=== PATIENT | female | born 1990 | race Caucasian/White ===

== ENCOUNTER 2017-09-11 03:19 | Emergency (ER) | payer OTHER ==
[~2017-09-11] VITALS: Ht 179.1 cm; Wt 66.0 kg
[2017-09-11 03:23] VITALS: TEMP 36.4; Ht 179.1 cm; Wt 66.0 kg
[2017-09-11] MEDS ORDERED: SODIUM CHLORIDE 0.9% 1000ML 1,000 ML IV STA ×2 (03:44→04:18)
[2017-09-11] MEDS ORDERED: ONDANSETRON INJ 2 MG/ML 2 ML VIAL IV STA (03:44)
--- NOTE | 2017-09-11 03:49 | EMERGENCY ROOM VISIT NOTE ---
History Report prepared by Luisa: Andrew Mcwilliams Under the Supervision of: Dr. Shameka Frias D.O. First contact with patient: 03:28 Chief Complaint: VOMITING Stated Complaint: VOMITING SINCE 1030AM, UNABLE TO KEEP FLUIDS DOWN, History of Present Illness The patient is a 27 year old female who presents to the Emergency Room with complaints of persistent vomiting and diarrhea that began yesterday morning at 1030 am, 17 hours prior to arrival. The patient states that there was a span of 3 hours where she held down some fluids, before vomiting persistently again. Yesterday evening at 1800 the patient also started to experience a headache. This headache is present and "severe" now. The patient is also complaining of "cramping" and "sharp" pains in her abdomen. There has not been any blood in the vomit or stool. She believes that her symptoms are the result of food poisoning as she may have eaten a bad steak. She denies any recent travels or sick contacts. 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 A total of 10 systems reviewed and were otherwise negative. Past Medical & Surgical Medical Problems: (1) Anxiety (2) Depression Anxiety Depression Family History Diabetes mellitus FHx: cancer Hypertension Social History Smoking Status: Never Smoker Marital Status: in relationship Housing Status: lives with significant other Occupation Status: unemployed Current/Historical Medications Scheduled Citalopram (Citalopram Hydrobromide), 40 MG PO DAILY Ferrous Sulfate (Iron), 325 MG PO BID Scheduled PRN Loratadine (Claritin), 10 MG PO DAILY PRN for Allergic Reaction Allergies Coded Allergies: No Known Allergies (Unverified , 09/11/17) Physical Exam Vital Signs Date Time Temp Pulse Resp B/P (MAP) Pulse Ox O2 Delivery O2 Flow Rate FiO2 09/11/17 05:54 73 20 112/63 100 09/11/17 05:11 63 20 109/70 100 Room Air 09/11/17 03:23 36.4 86 18 114/79 97 Room Air Physical Exam GENERAL: alert, well appearing, well nourished, no distress, non-toxic EYE EXAM: normal conjunctiva, PERRL and EOM's grossly intact OROPHARYNX: no exudate, no erythema, lips, buccal mucosa, and tongue normal and mucous membranes are moist NECK: supple, no nuchal rigidity, no adenopathy, non-tender LUNGS: Clear to auscultation. Normal chest wall mechanics HEART: no murmurs, S1 normal and S2 normal ABDOMEN: abdomen soft, non-tender, normo-active bowel sounds, no masses, no rebound or guarding. BACK: Back is symmetrical on inspection and there is no deformity, no midline tenderness, no CVA tenderness. SKIN: no rashes and no bruising UPPER EXTREMITIES: upper extremities are grossly normal. LOWER EXTREMITIES: No pitting edema. NEURO EXAM: Normal sensorium. Medical Decision & Procedures ER Provider Diagnostic Interpretation: Radiology results have been interpreted by the radiologist and reviewed by me. KUB: Abdominal series is negative for SBO. Scattered air present. Laboratory Results 09/11/17 04:00 Red Blood Count 4.08, Mean Corpuscular Volume 90.4, Mean Corpuscular Hemoglobin 32.4, Mean Corpuscular Hemoglobin Concent 35.8, Mean Platelet Volume 8.7, Neutrophils (%) (Auto) 90.5, Lymphocytes (%) (Auto) 3.9, Monocytes (%) (Auto) 5.4, Eosinophils (%) (Auto) 0.0, Basophils (%) (Auto) 0.0, Neutrophils # (Auto) 8.07, Lymphocytes # (Auto) 0.35, Monocytes # (Auto) 0.48, Eosinophils # (Auto) 0.00, Basophils # (Auto) 0.00 09/11/17 04:00 Test 09/11/17 04:00 White Blood Count 8.92 K/uL (4.8-10.8) Red Blood Count 4.08 M/uL (4.2-5.4) Hemoglobin 13.2 g/dL (12.0-16.0) Hematocrit 36.9 % (37-47) Mean Corpuscular Volume 90.4 fL (80-100) Mean Corpuscular Hemoglobin 32.4 pg (25-34) Mean Corpuscular Hemoglobin Concent 35.8 g/dl (32-36) Platelet Count 233 K/uL (130-400) Mean Platelet Volume 8.7 fL (7.4-10.4) Neutrophils (%) (Auto) 90.5 % Lymphocytes (%) (Auto) 3.9 % Monocytes (%) (Auto) 5.4 % Eosinophils (%) (Auto) 0.0 % Basophils (%) (Auto) 0.0 % Neutrophils # (Auto) 8.07 K/uL (1.4-6.5) Lymphocytes # (Auto) 0.35 K/uL (1.2-3.4) Monocytes # (Auto) 0.48 K/uL (0.11-0.59) Eosinophils # (Auto) 0.00 K/uL (0-0.5) Basophils # (Auto) 0.00 K/uL (0-0.2) RDW Standard Deviation 40.0 fL (36.4-46.3) RDW Coefficient of Variation 12.0 % (11.5-14.5) Immature Granulocyte % (Auto) 0.2 % Immature Granulocyte # (Auto) 0.02 K/uL (0.00-0.02) Anion Gap 6.0 mmol/L (3-11) Est Creatinine Clear Calc Drug Dose 130.2 ml/min Estimated GFR () 138.6 Estimated GFR (Non- 119.6 BUN/Creatinine Ratio 20.7 (10-20) Calcium Level 8.6 mg/dl (8.5-10.1) Total Bilirubin 0.4 mg/dl (0.2-1) Aspartate Amino Transf (AST/SGOT) 15 U/L (15-37) Alanine Aminotransferase (ALT/SGPT) 23 U/L (12-78) Alkaline Phosphatase 41 U/L (45-117) Total Protein 7.7 gm/dl (6.4-8.2) Albumin 3.9 gm/dl (3.4-5.0) Globulin 3.8 gm/dl (2.5-4.0) Albumin/Globulin Ratio 1.0 (0.9-2) Lipase 115 U/L (73-393) Human Chorionic Gonadotropin, Qual NEG (NEG) Laboratory results per my review. Medications Administered Medications (Trade) Dose Ordered Sig/Alexis Route Start Time Stop Time Status Last Admin Dose Admin Sodium Chloride 1,000 ml @ 999 mls/hr Q1H1M STAT IV 09/11/17 03:44 09/11/17 04:44 DC 09/11/17 04:07 999 MLS/HR Ondansetron HCl (Zofran Inj) 4 mg NOW STAT IV 09/11/17 03:44 09/11/17 03:46 DC 09/11/17 04:06 4 MG Sodium Chloride 1,000 ml @ 999 mls/hr Q1H1M STAT IV 09/11/17 04:18 09/11/17 05:18 DC 09/11/17 04:54 999 MLS/HR Potassium Chloride (Klor-Con M10) 40 meq NOW STAT PO 09/11/17 04:38 09/11/17 04:40 DC 09/11/17 04:56 40 MEQ Ondansetron HCl (ZOFRAN ODT 4MG Home Pack) 1 homepack UD ONCE PO 09/11/17 05:30 09/11/17 05:31 DC 09/11/17 05:55 1 HOMEPACK ED Course 0338: The patient was evaluated in room B9. A complete history and physical exam was performed. 0344: Ordered Zofran 4 mg IV, Sodium Chloride 1000 mL @ 999 mL/hr IV. 0418: Ordered Sodium Chloride 1000 mL @ 999 mL/hr IV. 0438: Ordered Potassium Chloride 40 meq PO. 0516: I checked on the patient at this time. She is feeling better. She will try to eat some crackers. 0530: Ordered Zofran 1 homepack PO. 0535: Upon reevaluation, the patient is feeling better. I discussed the findings and the treatment plan with the patient. She verbalizes agreement and understanding. The patient was discharged home. Medical Decision Differential diagnosis: Etiologies such as gastroenteritis, food borne illness, infections, appendicitis , diverticulitis, inflammatory bowel disease, obstruction, GI bleed, biliary pathology, as well as others were entertained. Pt improved here with meds. History suggestive of food poisoning. Labs otw reassuring. Mild hypokalemia replaced. Pt tolerating po here and ambulating with a steady gait. Discussed sx to watch/return for, hydration, diet, she verbalized understanding and was agreeable with plan. Medication Reconcilliation Current Medication List: was personally reviewed by me Blood Pressure Screening Patient's blood pressure: Normal blood pressure Impression Primary Impression: Nausea, vomiting, and diarrhea Additional Impression: Dehydration Scribe Attestation The scribe's documentation has been prepared under my direction and personally reviewed by me in its entirety. I confirm that the note above accurately reflects all work, treatment, procedures, and medical decision making performed by me. Departure Information Dispostion Home / Self-Care Referrals Pablo Dash MD (PCP) Patient Instructions My [facility] Additional Instructions Please drink clear liquids at frequent intervals to stay well hydrated. If you have any recurrent vomiting, worsening diarrhea, develop increasing pain, fevers /chills, notice blood in your vomit or stool, or you have any other new or concerning symptoms, please return to the emergency. Problem Qualifiers
[2017-09-11 04:14] LABS: HEMATOCRIT 36.9 % (37-47); HEMOGLOBIN 13.2 g/dL (12.0-16.0); IG# 0.02 K/uL (0.00-0.02); LYMPH % 3.9 %; LYMPH ABS # 0.35 K/uL (1.2-3.4); MEAN CELL VOLUME 90.4 fL (80-100); MEAN CORPUSCULAR HEMOGLOBIN 32.4 pg (25-34); MEAN CORPUSCULAR HGB CONC 35.8 g/dl (32-36); MEAN PLATELET VOLUME 8.7 fL (7.4-10.4); MONO % 5.4 %; MONO ABS # 0.48 K/uL (0.11-0.59); NEUT % 90.5 %; NEUT ABS # 8.07 K/uL (1.4-6.5); PLATELET COUNT 233 K/uL (130-400); WHITE BLOOD COUNT 8.92 K/uL (4.8-10.8)
[2017-09-11 04:33] LABS: ALBUMIN 3.9 gm/dl (3.4-5.0); CALCIUM 8.6 mg/dl (8.5-10.1); CREATININE 0.67 mg/dl (0.60-1.20); POTASSIUM 3.3 mmol/L (3.5-5.1)
[2017-09-11 04:36] LABS: TOTAL PROTEIN 7.7 gm/dl (6.4-8.2)
[2017-09-11] MEDS ORDERED: POTASSIUM CHLORIDE 10 MEQ TABCR PO STA (04:38)
[2017-09-11] MEDS ORDERED: CITA40TA4 PO (04:59)
[2017-09-11] MEDS ORDERED: FERR1TAB23 PO (05:00)
[2017-09-11] MEDS ORDERED: CLR10 PO (05:01)
[2017-09-11] MEDS ORDERED: ONDANSETRON HOME PACK 4MG OD TAB PO ONE (05:30)
[2017-09-11 05:54] VITALS: BP 112/63; PULSE 73; O2SAT 100
--- NOTE | 2017-09-11 07:39 | DIAGNOSTIC IMAGING REPORT ---
KUB CLINICAL HISTORY: Nausea vomiting and diarrhea COMPARISON STUDY: No previous studies for comparison. FINDINGS: There are no abnormally dilated loops of large or small bowel. No transition zones are visualized. No abnormal abdominal calcifications are evident. IMPRESSION: No evidence of pathologic bowel dilatation Electronically signed by: Austin Gonzalez M.D. 09/11/2017 7:37 AM Dictated Date/Time: 09/11/2017 7:37 AM
== END 2017-09-11 06:00 | disposition home or self-care (01) ==
LOC: C.EDB 03:21 → EDBD 03:21 → C.EDB 06:00
DX: R11.2 Nausea with vomiting, unspecified (principal); R19.7 Diarrhea, unspecified; E86.0 Dehydration; F41.9 Anxiety disorder, unspecified; F32.9 Major depressive disorder, single episode, unspecified; Z83.3 Family history of diabetes mellitus; Z80.9 Family history of malignant neoplasm, unspecified; Z82.49 Family history of ischemic heart disease and other diseases of the circulatory system